=== PATIENT | male | born 1995 | race African-American/Black ===

== ENCOUNTER 2021-12-01 21:12 | Emergency (ER) | payer OTHER ==
[2021-12-01 23:21] VITALS: BP 114/66
[2021-12-02] MEDS ORDERED: HYDROcodone/ACETAMINOPHEN 5-325 MG TAB PO ONE (00:22)
[2021-12-02] MEDS ORDERED: ONDANSETRON 4 MG ODT TAB PO ONE (00:22)
[2021-12-02] MEDS ORDERED: LIDOCAINE (1%) 10 MG/1 ML VIAL 20 ML MDV INFILTRATI ONE (00:22)
[2021-12-02] MEDS ORDERED: IBUPROFEN 600 MG TAB PO ONE (00:22)
--- NOTE | 2021-12-02 02:27 | Emergency Department Report ---
ED Upper Extremity Inj HPI - General Chief Complaint: Extremity Injury, Upper Stated Complaint: STITCHES Source: patient Mode of arrival: Ambulatory Limitations: No Limitations - History of Present Illness Initial Comments: Patient is a 26-year-old male with no past medical history who presents to the ED with complaint of bleeding left small finger laceration wound after a hand zipper trimmer accidentally cut his left small finger about 6 hours ago. Patient states that he is up-to-date with all his tetanus vaccinations. Patient states that the bleeding is well controlled at this time. Patient denies numbness and tingling or weakness of left hand or left small finger. MD Complaint: Injury to:: left, finger (small finger laceration) -: Sudden, hour(s) (6) Other Extremity Injury: Fingers: Left (small finger laceration) Other Injuries: none Place: work Severity scale (0 -10): 7 Improves With: none Worsens With: movement of extremity Context: laceration (left small finger laceration wound), injury Associated Symptoms: denies other symptoms. denies: weakness, numbness, neck pain, suspects foreign body, nausea/vomiting, heard/felt popping sensat - Related Data Previous Rx's Medication Instructions Recorded Last Taken Type Ibuprofen [Motrin] 800 mg PO Q8HR PRN #30 tablet 12/02/21 Unknown Rx cephALEXin [Keflex] 500 mg PO Q8HR #30 cap 12/02/21 Unknown Rx Allergies Allergy/AdvReac Type Severity Reaction Status Date / Time No Known Allergies Allergy Verified 12/01/21 22:23 ED Review of Systems ROS: Stated complaint: STITCHES Other details as noted in HPI Constitutional: denies: chills, fever Eyes: denies: eye pain, eye discharge, vision change ENT: denies: ear pain, throat pain Respiratory: denies: cough, shortness of breath, wheezing Cardiovascular: denies: chest pain, palpitations Endocrine: no symptoms reported Gastrointestinal: denies: abdominal pain, nausea, diarrhea Genitourinary: denies: urgency, dysuria Musculoskeletal: arthralgia (left small finger pain due to laceration wound). denies: back pain, joint swelling Skin: other (left small finger laceration wound). denies: rash, lesions Neurological: denies: headache, weakness, paresthesias Psychiatric: denies: anxiety, depression Hematological/Lymphatic: denies: easy bleeding, easy bruising ED Past Medical Hx - Medications Home Medications: Home Medications Medication Instructions Recorded Confirmed Last Taken Type Ibuprofen [Motrin] 800 mg PO Q8HR PRN #30 tablet 12/02/21 Unknown Rx cephALEXin [Keflex] 500 mg PO Q8HR #30 cap 12/02/21 Unknown Rx ED Physical Exam - General Limitations: No Limitations General appearance: alert, in no apparent distress - Head Head exam: Present: atraumatic, normocephalic, normal inspection - Eye Eye exam: Present: normal appearance, PERRL, EOMI Pupils: Present: normal accommodation - ENT ENT exam: Present: normal exam, normal orophraynx, mucous membranes moist, TM's normal bilaterally, normal external ear exam - Neck Neck exam: Present: normal inspection, full ROM. Absent: tenderness - Respiratory Respiratory exam: Present: normal lung sounds bilaterally. Absent: respiratory distress, wheezes, rales, chest wall tenderness, accessory muscle use, decreased breath sounds, prolonged expiratory, other - Cardiovascular Cardiovascular Exam: Present: regular rate, normal rhythm, normal heart sounds. Absent: systolic murmur, diastolic murmur, rubs, gallop - GI/Abdominal GI/Abdominal exam: Present: soft, normal bowel sounds. Absent: tenderness, guarding, rebound, hyperactive bowel sounds, hypoactive bowel sounds, organomegaly, mass - Extremities Exam Extremities exam: Present: normal inspection, full ROM, tenderness (Palpable left small finger tenderness due to a 4 cm laceration wound), normal capillary refill - Back Exam Back exam: Present: normal inspection, full ROM. Absent: tenderness, CVA tenderness (R), CVA tenderness (L), muscle spasm, paraspinal tenderness, vertebral tenderness - Neurological Exam Neurological exam: Present: alert, oriented X3, CN II-XII intact, normal gait, reflexes normal - Psychiatric Psychiatric exam: Present: normal affect, normal mood - Skin Skin exam: Present: warm, dry, intact, normal color, other (bleeding 4 cm laceration wound on left small finger on palmar side). Absent: rash ED Course Vital Signs 12/01/21 12/01/21 21:46 23:20 Temperature 98.6 F 98.1 F Pulse Rate 60 60 Respiratory 18 16 Rate Blood Pressure 128/76 Blood Pressure 114/66 [Left] O2 Sat by Pulse 97 94 Oximetry - Laceration /Wound Repair Left Palm Finger Wound Location: upper extremity (left small finger laceration wound) Wound Length (cm): 4 Wound's Depth, Shape: superficial, linear Wound Explored: contaminated Irrigated w/ Saline (ccs): 300 Betadine Prep?: Yes Anesthesia: 1% Lidocaine Volume Anesthetic (ccs): 5 Wound Debrided: extensive Wound Repaired With: sutures Suture Size/Type: 3:0, proline Number of Sutures: 9 Layer Closure?: No Sterile Dressing Applied?: Yes Progress: Wound was cleaned extensively with normal saline, Betadine lidocaine solution was used as a local anesthetic. When anesthesia was fully achieved, the wound was sutured per protocol using Prolene 3-0 sutures for a total of 9 sutures. The wound was then dressed appropriately and the patient tolerated the procedure well. On reevaluation, the left small finger is neurovascularly intact. Patient will discharge home on pain medication and prophylactic antibiotics advised to return to the ED immediately if symptoms get worse. Patient was advised to return to the ED or to his primary care physician in 12 to 14 days for suture removal. ED Medical Decision Making - Medical Decision Making This is a 26-year-old male with no past medical history who presents to the ED with complaint of bleeding left small finger laceration wound after a hand zipper trimmer accidentally cut his left small finger about 6 hours ago. Patient states that he is up-to-date with all his tetanus vaccinations. Patient states that the bleeding is well controlled at this time. In the ED, patient is alert and oriented x3 and is not in any distress. Patient was treated for pain in the ED. The left small finger laceration wound was sutured per protocol and patient tolerated the procedure well. On reevaluation, patient is neurovascularly intact in the left small finger. Patient was discharged home on pain medications and antibiotics and advised to follow-up with his primary care physician in 7 to 10 days for reevaluation or return to the ED immediately if symptoms get worse. Patient was advised to return to the ED or to his primary care physician in 12 to 14 days for suture removal. - Differential Diagnosis finger laceration; puncture wound; finger injury Critical care attestation.: If time is entered above; I have spent that time in minutes in the direct care of this critically ill patient, excluding procedure time. ED Disposition Clinical Impression: Laceration of left little finger w/o foreign body w/o damage to nail Qualifiers: Encounter type: initial encounter Qualified Code(s): S61.217A - Laceration without foreign body of left little finger without damage to nail, initial encounter Puncture wound of left little finger without foreign body without damage to nail Qualifiers: Encounter type: initial encounter Qualified Code(s): S61.237A - Puncture wound without foreign body of left little finger without damage to nail, initial encounter Disposition: HOME / SELF CARE / HOMELESS Is pt being admited?: No Does the pt Need Aspirin: No Condition: Stable Instructions: Puncture Wound, [id number], Laceration Care, Adult, [id number], Sutures, [place], or Adhesive Wound Closure, [id number], Sutured Wound Care, [id number] Additional Instructions: Take medication with food, drink plenty of fluids, follow-up with your primary care physician in 7 to 10 days for reevaluation. Return to the ED immediately if symptoms get worse. Otherwise return to the ED with your primary care physician in 12 to 14 days for suture removal. Prescriptions: cephALEXin [Keflex] 500 mg PO Q8HR #30 cap Ibuprofen [Motrin] 800 mg PO Q8HR PRN #30 tablet PRN Reason: Pain , Severe (7-10) Referrals: [facility] [Provider Group] - 7-10 days Forms: Work/School Release Form(ED) Time of Disposition: 02:30 Print Language: AMERICAN
== END 2021-12-02 02:57 | disposition home or self-care (01) ==
LOC: ED 21:12
DX: S61.217A Laceration without foreign body of left little finger without damage to nail, initial encounter (principal); W26.8XXA Contact with other sharp object(s), not elsewhere classified, initial encounter; Y93.89 Activity, other specified; Y92.89 Other specified places as the place of occurrence of the external cause; Y99.8 Other external cause status
CPT/HCPCS: 99282; J3490; Q0162